=== PATIENT | male | born 1995 | race Hispanic/Latino ===

== ENCOUNTER 2023-11-10 05:19 | Emergency (ER) | payer SELFPAY | END 2023-11-10 08:49 | disposition home or self-care (01) | LOC: ERS 05:19 | DX: N13.2 Hydronephrosis with renal and ureteral calculous obstruction (principal); Z55.6 Problems related to health literacy | CPT/HCPCS: 74176; 80053; 81001; 83690; 85025; 96361; 96374; 96375; 96376; J1885; J2270; J2405 ==